=== PATIENT | female | born 1955 | race Caucasian/White ===

== ENCOUNTER 2016-11-01 06:35 | Day surgery (SDC) | payer OTHER ==
[~2016-11-01 06:35] MED LIST: Lactated Ringers 1,000 ML IV SCH
[2016-11-01] MEDS ORDERED: Versed 2 MG/2 ML Injection IV ONE (08:00)
[2016-11-01] MEDS ORDERED: DIPRIVAN 200 MG/20 ML IV ONE (08:00)
[2016-11-01] MEDS ORDERED: Lactated Ringers 1,000 ML IV ONE (08:23)
[2016-11-01 10:13] VITALS: O2SAT 100
[2016-11-01 10:19] VITALS: BP 142/83; PULSE 76
--- NOTE | 2016-11-01 10:46 | OP ---
SURGERY DATE/TIME: 11/01/2016 0752 PREOPERATIVE DIAGNOSIS: History of colon polyps. POSTOPERATIVE DIAGNOSIS: Sigmoid colon polyps and sigmoid diverticulosis. PROCEDURE: Colonoscopy with polypectomy. SURGEON: Dr. Berry. ANESTHESIA: MAC. Medications given by anesthesia department. HISTORY: The patient is a 61 year-old white female known to have colon polyps. She reported she had a large one removed just about two years ago. The patient represents now for further investigation. She was reappraised of the risks of the procedure including the risk of perforation, phlebitis, untoward reaction to medication, bleeding, and missed lesions. The patient verbalized her understanding and desired to have the procedure performed. DESCRIPTION OF PROCEDURE: The patient was given the medications by the anesthesia department. She had continuous pulse oximetry, ECG monitoring, intermittent blood pressure monitoring, and tidal CO2 monitoring during the examination. She was placed in the left lateral decubitus position. A digital rectal examination was performed and revealed normal anal sphincter tone and no masses. The flexible Olympus pediatric colonoscope was used to intubate the rectum. A view of the colon was developed sequentially to the cecum. Upon insertion and withdrawal, noted multiple polyps in the sigmoid colon. We removed one using polypectomy snare and biopsied several others to rule out adenomatous change. There was also noted to be moderate sigmoid diverticulosis. The scope was removed from the patient who tolerated the procedure well and was sent back to OP recovery in good condition. The prep was noted to be good.
== END 2016-11-01 09:30 | disposition home or self-care (01) ==
LOC: SDC 06:35
PROVIDERS: ATTEND Family Medicine
PROC: 0DBN8ZZ Excision of Sigmoid Colon, Via Natural or Artificial Opening Endoscopic (ICD-10-PCS; principal; 2016-11-01)
DX: Z86.010 Personal history of colon polyps (principal); D12.5 Benign neoplasm of sigmoid colon; K57.30 Diverticulosis of large intestine without perforation or abscess without bleeding
CPT/HCPCS: 00810; 36415; J2250; J2704

== ENCOUNTER 2017-10-13 09:08 | Day surgery (SDC) | payer OTHER ==
--- NOTE | 2017-10-12 09:10 | HP ---
DATE OF SURGERY: 10/13/2017 ANTICIPATED PROCEDURE: Colonoscopy. HISTORY OF PRESENT ILLNESS: The patient presents for colonoscopy. She has been told that she has a large number of polyps that have not been removed. PAST MEDICAL HISTORY: ALLERGIES: SULFA, CODEINE. MEDICATIONS: Norvasc, Krissy-Colace. PAST SURGICAL HISTORY: section, rotator cuff, appendectomy. SOCIAL HISTORY: One pack per day. ETOH negative. FAMILY HISTORY: Colon cancer. PHYSICAL EXAMINATION: VITAL SIGNS: Normal. CHEST: Clear. COR: Regular. ABDOMEN: No palpable organomegaly or mass. IMPRESSION: The patient apparently has large number of polyps. PLAN: Colonoscopy and removal.
[2017-10-13] MEDS ORDERED: DIPRIVAN 200 MG/20 ML IV ONE (09:09)
[2017-10-13] MEDS ORDERED: Lactated Ringers 1,000 ML IV ONE (09:26)
[2017-10-13 12:08] VITALS: O2SAT 99
[2017-10-13 12:24] VITALS: BP 124/78; PULSE 74
--- NOTE | 2017-10-13 12:49 | OP ---
SURGERY DATE/TIME: 10/13/2017 1100 PREOPERATIVE DIAGNOSIS: Known history of multiple polyps. POSTOPERATIVE DIAGNOSIS: At least 15 polyps. PROCEDURE: Colonoscopy complete to cecum, hot polypectomy in three major areas distal descending, mid sigmoid and distal sigmoid taken about five polyps about 8 mm each submitted in three different containers. SURGEON: Panchito London M.D. ANESTHESIA: MAC. COMPLICATIONS: None. CONDITION: Stable. INDICATION: The patient has multiple polyps. At this point I think she deserves a follow up in one year. She clearly has some type of polyposis syndrome. DESCRIPTION OF PROCEDURE: Taken to the endoscopy suite. MAC sedation provided. Scope advanced to the cecum. 9 out of 9 prep. On circumferential withdrawal three large patches of polyps distal descending, mid sigmoid and rectum were taken with hot biopsy forceps to extinction. They were sent in three containers. The patient tolerated the procedure satisfactory. There was a 9 over 9 prep. There was greater than 6 minute withdrawal time. PLAN: Follow up one year.
== END 2017-10-13 12:25 | disposition home or self-care (01) ==
LOC: SDC 09:08
PROVIDERS: ATTEND Surgery
DX: Z86.010 Personal history of colon polyps (principal); K63.5 Polyp of colon; Z72.0 Tobacco use
CPT/HCPCS: 88305; J2704